=== PATIENT | male | born 1965 | race Caucasian/White ===

== ENCOUNTER 2016-10-15 08:57 | Emergency (ER) | payer OTHER ==
[~2016-10-15] VITALS: Ht 172.7 cm; Wt 70.0 kg
[~2016-10-15 08:57] MED LIST: CLIN150 PO; LISI-360 PO; LORTA5 PO; MOME17I; MULT-65 PO; RANI150T PO; SOMA350T PO; TRAM50 PO
[2016-10-15 08:58] VITALS: BP 164/92; PULSE 89; RESP 18; TEMP 98.1; O2SAT 98
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
[2016-10-15] MEDS ORDERED: traMADol HCL 50 MG TAB PO ONE (09:15)
[2016-10-15] MEDS ORDERED: DICL75TA PO (09:18)
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
[2016-10-15] MEDS ORDERED: TRAM50TA PO (09:44)
== END 2016-10-15 10:21 | disposition home or self-care (01) ==
LOC: NEPK 08:57
DX: M79.672 Pain in left foot (principal); G89.29 Other chronic pain; M77.32 Calcaneal spur, left foot; Y93.H2 Activity, gardening and landscaping; Y92.9 Unspecified place or not applicable; I10 Essential (primary) hypertension; K21.9 Gastro-esophageal reflux disease without esophagitis
CPT/HCPCS: 73630; 99283